=== PATIENT | male | born 1970 | race Caucasian/White ===

== ENCOUNTER 2017-05-16 09:32 | Emergency (ER) | payer BC ==
[2017-05-16 10:25] VITALS: BP 154/99
--- NOTE | 2017-05-16 10:33 | UC ---
Ear Complaint HPI - HPI Summary HPI Summary: 46 yo male with left otalgia and decreased hearing x days recent URI no f/c - History of Current Complaint Chief Complaint: UCEar Stated Complaint: LEFT EAR COMPLAINT Time Seen by Provider: 05/16/17 10:14 Hx Obtained From: Patient Onset/Duration: Gradual Onset, Lasting Days Severity Initially: Mild Severity Currently: Mild Pain Intensity: 2 Pain Scale Used: 0-10 Numeric Associated Signs/Symptoms: Positive: Hearing Loss, URI Symptoms - Allergies/Home Medications Allergies/Adverse Reactions: Allergies Allergy/AdvReac Type Severity Reaction Status Date / Time No Known Allergies Allergy Verified 05/16/17 10:09 PMH/Surg Hx/FS Hx/Imm Hx Previously Healthy: Yes - Surgical History Surgical History: None - Family History Known Family History: Positive: Hypertension - Social History Alcohol Use: Rare Substance Use Type: Marijuana Substance Use Comment - Amount & Last Used: Dec 2016 Smoking Status (MU): Heavy Every Day Tobacco Smoker Review of Systems Constitutional: Negative Skin: Negative Eyes: Negative ENT: Ear Ache Respiratory: Negative Cardiovascular: Negative Gastrointestinal: Negative Genitourinary: Negative Motor: Negative Neurovascular: Negative Musculoskeletal: Negative Neurological: Negative Psychological: Negative All Other Systems Reviewed And Are Negative: Yes Physical Exam Triage Information Reviewed: Yes Appearance: Well-Appearing, No Pain Distress, Well-Nourished Vital Signs: Initial Vital Signs Temp 98.3 F 05/16/17 10:10 Pulse 90 05/16/17 10:10 Resp 18 05/16/17 10:10 BP 154/99 05/16/17 10:10 Pulse Ox 98 05/16/17 10:10 Eyes: Positive: Conjunctiva Clear ENT: Positive: TM bulging - L, TM red - L Neck: Positive: Nontender, No Lymphadenopathy Respiratory: Positive: Lungs clear, Normal breath sounds, No respiratory distress Cardiovascular: Positive: RRR, No Murmur Musculoskeletal: Positive: ROM Intact Neurological: Positive: Alert Psychological Exam: Normal Skin Exam: Normal Ear Complaint Course/Dx - Differential Dx/Diagnosis Provider Diagnoses: left otitis media Discharge - Discharge Plan Condition: Stable Disposition: HOME Prescriptions: Amoxicillin PO (*) [Amoxicillin 875 MG (*)] 875 mg PO BID #20 tab Patient Education Materials: Ear Infection (ED) Referrals: No Primary Care Phys,NOPCP [Primary Care Provider] - Additional Instructions: recheck in 2-3 weeks if hearing not back to normal
== END 2017-05-16 10:49 | disposition home or self-care (01) ==
LOC: UCCORT 09:32
DX: H66.92 Otitis media, unspecified, left ear (principal); F17.210 Nicotine dependence, cigarettes, uncomplicated
CPT/HCPCS: 99202; G0463

== ENCOUNTER 2018-07-12 16:36 | Emergency (ER) | payer BC ==
[2018-07-12 17:14] VITALS: BP 156/90
--- NOTE | 2018-07-12 17:58 | ED ---
Lower Extremity - HPI Summary HPI Summary: 47 yr old with left knee pain. Onset several days ago. His grad daughter was playing Karate with him. She is 5 yrs old. She kicked him in the left patella. HIs knee didn't hurt that much, but over the past few days he is having trouble bearing weight, it is red, and warm, and swollen. No fever or chills. He does not feel ill. - History of Current Complaint Chief Complaint: UCLowerExtremity Stated Complaint: LEFT KNEE Time Seen by Provider: 07/12/18 17:05 Pain Intensity: 2 - Allergies/Home Medications Allergies/Adverse Reactions: Allergies Allergy/AdvReac Type Severity Reaction Status Date / Time No Known Allergies Allergy Verified 07/12/18 17:13 Home Medications: Home Medications Ibuprofen TAB* [Motrin TAB* 400 MG] 800 mg PO Q6H PRN 07/12/18 [History Confirmed 07/12/18] PMH/Surg Hx/FS Hx/Imm Hx Cardiovascular History: Reports: Hx Hypertension Infectious Disease History: No Infectious Disease History: Denies: Traveled Outside the [place] in Last 30 Days - Family History Known Family History: Positive: Hypertension - Social History Alcohol Use: None Substance Use Type: Reports: None Substance Use Comment - Amount & Last Used: Dec 2016 Smoking Status (MU): Heavy Every Day Tobacco Smoker Type: Cigarettes Amount Used/How Often: 10 cigarettes daily Review of Systems Constitutional: Negative Positive: Other - left knee pain All Other Systems Reviewed And Are Negative: Yes Physical Exam Triage Information Reviewed: Yes Vital Signs On Initial Exam: Initial Vitals Temp Pulse Resp BP Pulse Ox 98.3 F 82 16 156/90 99 07/12/18 17:10 07/12/18 17:10 07/12/18 17:10 07/12/18 17:10 07/12/18 17:10 Vital Signs Reviewed: Yes Appearance: Positive: Well-Appearing, No Pain Distress Skin: Positive: Warm, Other - erythema left knee Eyes: Positive: EOMI ENT: Positive: Normal ENT inspection Respiratory/Lung Sounds: Positive: Clear to Auscultation Cardiovascular: Positive: Pulses are Symmetrical in both Upper and Lower Extremities Abdomen Description: Negative: Distended Musculoskeletal: Positive: Other - left knee with joint effusion, redness, tenderness and limited ROM. Neurological: Positive: Sensory/Motor Intact, Alert, Oriented to Person Place, Time, CN Intact II-III Psychiatric: Positive: Normal Diagnostics - Vital Signs Vital Signs Temp Pulse Resp BP Pulse Ox 07/12/18 17:10 98.3 F 82 16 156/90 99 - Laboratory Lab Statement: Any lab studies that have been ordered have been reviewed, and results considered in the medical decision making process. - Radiology left knee Radiology Interpretation Completed By: Radiologist - effusion Lower Extremity Course/Dx - Course Course Of Treatment: 47 yr old with effusion left knee and redness and increased warmth. Concern for septic joint. TO ER for further eval. Patient agrees with the plan and he is going to the ER from here. - Diagnoses Provider Diagnoses: Knee effusion, left, Hypertension Discharge - Sign-Out/Discharge Documenting (check all that apply): Patient Departure All imaging exams completed and their final reports reviewed: Yes - Discharge Plan Condition: Good Disposition: HOME-RECOMMEND TO ED Patient Education Materials: Swollen Knee Joint (ED), Hypertension (ED) Referrals: No Primary Care Phys,NOPCP [Primary Care Provider] - [facility]Outside] - 2 Days Additional Instructions: YOu need to go to the ER for further evaluation of your swollen red knee. YOu may have an infection in the knee. YOu were offered an ambulance but have stated you are going on your own. - Billing Disposition and Condition Condition: GOOD Disposition: Home-Recommend to ED
== END 2018-07-12 18:16 | disposition home health service (06) ==
LOC: UCCORT 16:36
DX: M25.462 Effusion, left knee (principal); I10 Essential (primary) hypertension; F17.210 Nicotine dependence, cigarettes, uncomplicated
CPT/HCPCS: 99213; G0463

== ENCOUNTER 2018-08-12 10:40 | Emergency (ER) | payer BC ==
--- OUTSIDE RECORDS SUMMARY | 2018-08-12 11:34 | XMS REPORT | Continuity of Care Document ---
:1970 External Reference #:[id number] Author Name Edi Mclaughlin Care Team Providers Name Role Phone Patient's Choice Primary Care Physician Unavailable Payers Date Identification Numbers Payment Provider Subscriber Effective: 2018 Policy Number: [id number] [employer] Severiano Pastor PayID: [id number] [address] [address] [place] [address] Family History Date Family Member(s) Observation Comments General Diabetes Type II General Lupus Father Diabetes Type II Mother Alive And Well First Sister Lupus Social History Type Date Description Comments Sex Unknown Marital Status Lives With Occupation Construction Tobacco Use Start: Unknown Light tobacco smoker (10 or fewer cigarettes/day) Smoking Status Reviewed: 08/04/18 Light tobacco smoker (10 or fewer cigarettes/day) ETOH Use Denies alcohol use Recreational Drug Use Denies Drug Use Tobacco Use Start: Unknown Light tobacco smoker (10 or fewer cigarettes/day) Exercise Type/Frequency Does not exercise Allergies, Adverse Reactions, Alerts Description No Known Drug Allergies Medications Active Medications SIG Qnty Indications Ordering Provider Date Ibuprofen 200 400-600mg every 6 Unknown 200mg hours as needed Tablets for pain. Vital Signs Date Vital Result Comment 08/04/2018 8:20am Height 65 inches 5'5" Weight 185.00 lb Heart Rate 83 /min BP Systolic Sitting 130 mmHg BP Diastolic Sitting 88 mmHg Respiratory Rate 18 /min Pain Level 0 BMI (Body Mass Index) 30.8 kg/m2 07/13/2018 2:40pm Height 65 inches 5'5" Weight 185.00 lb Heart Rate 90 /min BP Systolic Sitting 130 mmHg BP Diastolic Sitting 84 mmHg Respiratory Rate 18 /min Pain Level 0 BMI (Body Mass Index) 30.8 kg/m2 Encounters Type Date Location Provider Dx Diagnosis Office Visit 07/13/2018 Orthopedic Maik Florentino, M23.92 Unspecified 2:30[facility] derangement of left knee M25.462 Effusion, left knee M25.562 Pain in left knee Plan of Treatment Future Appointment(s):08/15/2018 8:00 am - Elisabet Carvajal MD at [facility]08/04/2018 - Maik Florentino, MDM23.612 Other spontaneous disruption of anterior cruciate ligament oFollow up:Follow up: sushma for possible acl reconstruction
[2018-08-12 11:49] VITALS: BP 158/92
--- NOTE | 2018-08-12 11:58 | UC ---
Knee Pain HPI - HPI Summary HPI Summary: Per assistant store manager: "Pt was here a few weeks ago because he had slipped and injured his L knee, which now feels better. R knee gave out from patient when ambulating on Tuesday morning and pt fell again. R knee was very swollen on Tuesday. Pt has been working with his knee injured all week. Swelling has decreased. Pt has appt with a sports medicine doctor to have L knee evaluated on 08/15." -ice made it worse/ heat helped. -has been taking advil -swelling much decreased from yesetrday -works construction - History of Current Complaint Chief Complaint: UCGeneralIllness Stated Complaint: RIGHT KNEE CONCERN Time Seen by Provider: 08/12/18 11:57 Pain Intensity: 4 - Allergies/Home Medications Allergies/Adverse Reactions: Allergies Allergy/AdvReac Type Severity Reaction Status Date / Time No Known Allergies Allergy Verified 08/12/18 11:50 PMH/Surg Hx/FS Hx/Imm Hx Previously Healthy: Yes - Surgical History Surgical History: None Surgery Procedure, Year, and Place: DENIES - Family History Known Family History: Positive: Hypertension - Social History Alcohol Use: None Substance Use Type: None Substance Use Comment - Amount & Last Used: Dec 2016 Smoking Status (MU): Heavy Every Day Tobacco Smoker Type: Cigarettes Amount Used/How Often: 10 cigarettes daily Review of Systems All Other Systems Reviewed And Are Negative: Yes Constitutional: Positive: Negative Skin: Positive: Negative Respiratory: Positive: Negative Cardiovascular: Positive: Negative Gastrointestinal: Positive: Negative Genitourinary: Positive: Negative Motor: Positive: Decreased ROM Neurovascular: Positive: Negative Musculoskeletal: Positive: Arthralgia, Decreased ROM Neurological: Positive: Negative Psychological: Positive: Negative Is Patient Immunocompromised?: No Physical Exam Triage Information Reviewed: Yes Appearance: Well-Appearing, No Pain Distress, Well-Nourished - slight-mod limp Vital Signs: Initial Vital Signs Temp 97.8 F 08/12/18 11:43 Pulse 63 08/12/18 11:43 Resp 18 08/12/18 11:43 BP 158/92 08/12/18 11:43 Pulse Ox 96 08/12/18 11:43 Eye Exam: Normal Respiratory Exam: Normal Respiratory: Positive: Lungs clear Cardiovascular Exam: Normal Cardiovascular: Positive: RRR Musculoskeletal: Positive: Other: - right knee w/ mild-mod suprapatellar effsuion. tender at medial joint limne. no varus/valgus laxity. neg A/P drawer. good ROM but slightly restricted at end Neurological Exam: Normal Psychological Exam: Normal Skin Exam: Normal Knee Pain Course/Dx - Course Course Of Treatment: -BP elevated d/t pain and NSAID use likely -should f/u with PCP for BP - Differential Dx/Diagnosis Differential Diagnosis/HQI/PQRI: Fracture (Closed), Sprain, Strain Provider Diagnosis: Right knee pain Discharge - Sign-Out/Discharge Documenting (check all that apply): Patient Departure All imaging exams completed and their final reports reviewed: Yes - Discharge Plan Condition: Stable Disposition: HOME Patient Education Materials: Swollen Knee Joint (ED) Forms: *Work Release Referrals: No Primary Care Phys,NOPCP [Primary Care Provider] - [facility] [Provider Group] Additional Instructions: I do not appreciate any fracture on the xray, although it has not been read officially. You said that the heat made the symptoms improve, so you can continue using that rather than ice. -You should follow up with a PCP for your elevated blood pressure. -Keep the appt with the Sports med doctor this week for both knees. -Out of work until further evaluated. Note given for 08/14 and 08/15. - Billing Disposition and Condition Condition: STABLE Disposition: Home
== END 2018-08-12 13:23 | disposition home or self-care (01) ==
LOC: UCCORT 10:40
DX: M25.561 Pain in right knee (principal); M25.461 Effusion, right knee; M17.11 Unilateral primary osteoarthritis, right knee; R03.0 Elevated blood-pressure reading, without diagnosis of hypertension; F17.210 Nicotine dependence, cigarettes, uncomplicated
CPT/HCPCS: 99211; G0463